=== PATIENT | male | born 1950 | race Caucasian/White ===

== ENCOUNTER 2021-02-19 | Emergency (ER) | payer SELFPAY | END 2021-02-19 23:02 | disposition home or self-care (01) ==

== ENCOUNTER 2022-12-19 10:46 | Inpatient (IN) | payer MEDICARE ==
[2022-12-19 11:52] LABS: Bacteria/HPF 1+ HPF (None Seen); Bilirubin Negative (Negative); Blood, Urine Negative (Negative); CAUTI Indications for Culture Dysuria,urgency,freq; Clarity Clear (Clear); Glucose, Urine (Dipstick) Normal (Negative); Ketone, Urine Negative (Negative); Leukocyte 75 Leu/uL (Negative); Nitrite Negative (Negative); Protein, Urine (Dipstick) 50 mg/dL (Neg-Trace); RBC/HPF 0-3 HPF (0-3); Specific Gravity, Urine 1.015 (1.002-1.036); Squamous Epithelial 0-3 HPF (0-3); Urobilinogen Normal mg/dL (Less than 2)
[2022-12-19 11:53] LABS: Urine Culture Reflex No No
[2022-12-19 12:36] LABS: ALT (SGPT) Less than 7 U/L (8-55); AST (SGOT) 14 U/L (5-34); Albumin 2.8 g/dL (3.4-4.8); Alkaline Phosphatase 148 U/L (40-110); Anion Gap 17 mmol/L (10-20); BUN (Urea Nitrogen) 69 mg/dL (8.4-25.7); Bilirubin, Total 1.1 mg/dL (0.2-1.2); Calc. Creatinine Clearance 0 mL/min (70-130); Calcium 7.7 mg/dL (7.8-10.44); Carbon Dioxide 22 mmol/L (23-31); Chloride 104 mmol/L (98-107); Estimated GFR 33; Globulin 1.7 g/dL (2.4-3.5); Glucose 60 mg/dL (83-110); Potassium 5.7 mmol/L (3.5-5.1); Protein, Total 4.5 g/dL (5.8-8.1); Sodium 137 mmol/L (136-145)
[2022-12-19 12:53] LABS: Hemoglobin 3.9 g/dL (14.0-18.0); Manual Diff?? YES; Mean Corpuscular Hemoglobin 25.8 pg (27.0-31.0); Mean Corpuscular Volume 121.9 fl (78.0-98.0); Mean Platelet Volume 11.4 fL (7.4-10.4); RBC Distribution Width 29.8 % (11.5-14.5); Red Blood Cell (RBC) Count 1.51 mill/uL (4.70-6.10); White Blood Cell (WBC) Count 314.7 10x3/uL (4.8-10.8)
[2022-12-19 12:54] LABS: Mean Corpuscular HGB CONC 21.2 g/dL (32.0-36.0); Platelet Count 22 10x3/uL (130-400)
[2022-12-19 12:56] LABS: Delete Auto Diff?? YES
[2022-12-19 13:19] LABS: Anisocytosis MODERATE=16-30 cells HPF (0-5); Band 1 % (5-11); CellaVision Operator ID LAB.KB; Eosinophils 2 % (0-10); Hypochromia SLIGHT = 6-15 cells HPF (0-5); Lymphocytes 86 % (21-51); Macrocytosis MODERATE=16-30 cells HPF (0-5); Metamyelocyte 1 % (0-0); Monocytes 1 % (0-10); Neutrophil 9 % (42-75); Nucleated RBC (Manual Ct) 4 % (0); Ovalocytes SLIGHT = 2-5 cells HPF (0-1); Platelet Adequacy Comment Significant decrease; Polychromasia SLIGHT = 2-3 cells HPF (0-2); Smudge Cells 129.1 %; Total Cell Count 103
[2022-12-19] MEDS ORDERED: Cefepime 2 GM VIAL ONE (13:29)
[2022-12-19] MEDS ORDERED: Vancomycin 1.5 GRAM/300 ML BAG 1.5 GM in Premix Bag 1 BAG IVPB SCH (13:45)
[2022-12-19 16:07] LABS: Troponin I 0.918 ng/mL (< 0.028)
[2022-12-19 18:16] LABS: Critical Call Chem Troponin I RESULT DECREASING; Troponin I 0.844 ng/mL (< 0.028)
[2022-12-19] MEDS ORDERED: Senokot S 8.6-50 MG TAB PO PRN (18:27)
[2022-12-19] MEDS ORDERED: Dextrose 5 % And 0.9 % NaCl 1,000 ML IV SCH ×2 (18:30→18:45)
[2022-12-19] MEDS ORDERED: LOKELMA 10 GM PACKET PO SCH (18:30)
[2022-12-19] MEDS ORDERED: Acetaminophen 325 MG TAB PO PRN (18:30)
[2022-12-19] MEDS ORDERED: Dextrose 5% in Water 1,000 ML IV PRN (18:31)
[2022-12-19] MEDS ORDERED: Glucagon 1 MG/ML KIT IM PRN (18:31)
[2022-12-19] MEDS ORDERED: Dextrose 50% Abboject 50 ML SYRINGE SLOW IVP PRN (18:31)
[2022-12-19 18:42] VITALS: BMI 20.7
[2022-12-19] MEDS: ALPRAZolam 0.5 MG TAB PO SCH (20:55)
[2022-12-20] MEDS: Albumin 25% 25 GM/100 ML BOT IVPB SCH ×2 (00:13→05:14)
[2022-12-20 02:12] LABS: Hemoglobin 6.4 g/dL (14.0-18.0); Manual Diff?? YES; Mean Corpuscular HGB CONC 26.4 g/dL (32.0-36.0); Mean Corpuscular Hemoglobin 28.3 pg (27.0-31.0); RBC Distribution Width 27.5 % (11.5-14.5); Red Blood Cell (RBC) Count 2.26 mill/uL (4.70-6.10)
[2022-12-20 02:38] LABS: Delete Auto Diff?? YES
[2022-12-20 02:40] LABS: White Blood Cell (WBC) Count 266.3 10x3/uL (4.8-10.8)
[2022-12-20 02:42] LABS: Anion Gap 17 mmol/L (10-20); BUN (Urea Nitrogen) 75 mg/dL (8.4-25.7); Calc. Creatinine Clearance 34 mL/min (70-130); Calcium 7.7 mg/dL (7.8-10.44); Carbon Dioxide 19 mmol/L (23-31); Chloride 106 mmol/L (98-107); Estimated GFR 36; Glucose 86 mg/dL (83-110); Sodium 135 mmol/L (136-145)
[2022-12-20 02:46] LABS: Potassium 6.6 mmol/L (3.5-5.1)
[2022-12-20 03:45] LABS: Anisocytosis MODERATE=16-30 cells HPF (0-5); Band 1 % (5-11); Burr Cells SLIGHT = 2-5 cells HPF (0-1); CellaVision Operator ID LAB.JMM; Lymphocytes 91 % (21-51); Macrocytosis SLIGHT = 6-15 cells HPF (0-5); Metamyelocyte 1 % (0-0); Neutrophil 7 % (42-75); Platelet Adequacy Comment Platelets Decreased; Poikilocytosis SLIGHT = 6-15 cells HPF (0-5); Polychromasia SLIGHT = 2-3 cells HPF (0-2); RBC Morphology 2; Smudge Cells 123.5 %; Total Cell Count 98
[2022-12-20] MEDS ORDERED: Calcium Gluc 4.6 MEQ/10 ML (100 MG/ML) SLOW IVP SCH (03:45)
[2022-12-20 03:48] LABS: Platelet Count 18 10x3/uL (130-400)
[2022-12-20 03:49] LABS: Mean Corpuscular Volume 107.1 fl (78.0-98.0)
[2022-12-20] MEDS ORDERED: LOKELMA 10 GM PACKET PO SCH (04:00)
[2022-12-20 04:29] VITALS: BP 107/56; TEMP 98.5
[2022-12-20 05:43] LABS: Anion Gap 14 mmol/L (10-20); BUN (Urea Nitrogen) 73 mg/dL (8.4-25.7); Calc. Creatinine Clearance 34 mL/min (70-130); Calcium 7.9 mg/dL (7.8-10.44); Carbon Dioxide 22 mmol/L (23-31); Chloride 105 mmol/L (98-107); Estimated GFR 36; Glucose 101 mg/dL (83-110); Potassium 5.8 mmol/L (3.5-5.1); Sodium 135 mmol/L (136-145)
[2022-12-20] MEDS ORDERED: Levothyroxine Sodium 88 MCG TAB PO SCH (06:00)
[2022-12-20] MEDS ORDERED: Dextrose 5 % And 0.9 % NaCl 1,000 ML IV SCH ×2 (07:10→08:45)
[2022-12-20] MEDS ORDERED: Furosemide 20 MG/2 ML VIAL SLOW IVP SCH (07:15)
[2022-12-20] MEDS: ALPRAZolam 0.5 MG TAB PO SCH ×2 (08:34→20:36)
[2022-12-20] MEDS ORDERED: Promethazine HCl 12.5 MG in Sodium Chloride 0.9% 50 ML IVPB PRN (08:44)
[2022-12-20] MEDS ORDERED: Morphine 2 MG/ML VIAL SLOW IVP PRN (08:44)
[2022-12-20] MEDS ORDERED: Lorazepam 2 MG/ML VIAL SLOW IVP PRN (08:45)
[2022-12-20] MEDS ORDERED: Ipratropium/Albuterol 3 ML NEB NEB PRN (08:55)
[2022-12-20] MEDS: Morphine 2 MG/ML VIAL SLOW IVP PRN ×3 (12:22→19:57)
[2022-12-20] MEDS ORDERED: Cefepime 2 GM in Sodium Chloride 0.9% 100 ML IVPB SCH (13:00)
[2022-12-20] MEDS ORDERED: Scopolamine 1.5 mg/72 hour Patch TD SCH (23:00)
[2022-12-20] MEDS: HYDROcodone/Acetaminophen 10/325 mg Tablet PO PRN (23:22)
[2022-12-20] MEDS: Promethazine 25 MG TAB PO PRN (23:23)
[2022-12-21] MEDS: HYDROcodone/Acetaminophen 10/325 mg Tablet PO PRN ×2 (12:09→18:51)
[2022-12-21] MEDS: Promethazine 25 MG TAB PO PRN ×2 (12:11→18:51)
[2022-12-21] MEDS: ALPRAZolam 0.5 MG TAB PO SCH ×2 (12:11→21:01)
[2022-12-22] MEDS: HYDROcodone/Acetaminophen 10/325 mg Tablet PO PRN ×3 (01:25→17:52)
[2022-12-22] MEDS: Promethazine 25 MG TAB PO PRN ×3 (01:31→17:52)
[2022-12-22] MEDS: ALPRAZolam 0.5 MG TAB PO SCH ×2 (08:36→20:30)
[2022-12-23] MEDS: HYDROcodone/Acetaminophen 10/325 mg Tablet PO PRN ×3 (00:25→09:43)
[2022-12-23] MEDS: Promethazine 25 MG TAB PO PRN ×2 (00:27→09:44)
[2022-12-23] MEDS: ALPRAZolam 0.5 MG TAB PO SCH (09:45)
[2022-12-23] MEDS: Morphine 2 MG/ML VIAL SLOW IVP PRN ×2 (14:05→16:09)
[2022-12-23] MEDS ORDERED: Scopolamine 1.5 mg/72 hour Patch TD SCH (23:00)
== END 2022-12-23 16:17 | disposition home or self-care (01) | DRG 840 ==
LOC: ERS 10:46 → 2NO 18:38 → EEVIPCON 18:38
PROVIDERS: ADMIT Family Medicine; ATTEND Internal Medicine
PROC: 30233N1 Transfusion of Nonautologous Red Blood Cells into Peripheral Vein, Percutaneous Approach (ICD-10-PCS; principal; 2022-12-19)
PROC: 30233J1 Transfusion of Nonautologous Serum Albumin into Peripheral Vein, Percutaneous Approach (ICD-10-PCS; 2022-12-20)
DX: C91.10 Chronic lymphocytic leukemia of B-cell type not having achieved remission (principal); E43 Unspecified severe protein-calorie malnutrition; I21.A1 Myocardial infarction type 2; R64 Cachexia; N17.9 Acute kidney failure, unspecified; J91.0 Malignant pleural effusion; Z66 Do not resuscitate; Z51.5 Encounter for palliative care; E87.5 Hyperkalemia; G89.29 Other chronic pain; E16.2 Hypoglycemia, unspecified; I25.10 Atherosclerotic heart disease of native coronary artery without angina pectoris; D63.0 Anemia in neoplastic disease; D69.6 Thrombocytopenia, unspecified; N18.9 Chronic kidney disease, unspecified; E03.9 Hypothyroidism, unspecified; Z68.20 Body mass index [BMI] 20.0-20.9, adult; Z85.828 Personal history of other malignant neoplasm of skin; Z98.890 Other specified postprocedural states; Z95.5 Presence of coronary angioplasty implant and graft; Z91.040 Latex allergy status; Z88.0 Allergy status to penicillin; Z91.09 Other allergy status, other than to drugs and biological substances
CPT/HCPCS: 36415; 36416; 36430; 71045; 80048; 80053; 81001; 82553; 83605; 83615; 83880; 84484; 85025; 86850; 86900; 86901; 87040; 93005; 93010; 96365; J0612; J0692; J1940; J2272; J3370; J7042; J7611; P9016; P9047; Q0169

== ENCOUNTER 2022-12-23 16:21 | Inpatient (IN) | payer OTHER ==
[2022-12-23] MEDS ORDERED: Promethazine HCl 25 MG in Sodium Chloride 0.9% 50 ML IVPB PRN (17:36)
[2022-12-23] MEDS ORDERED: Haloperidol Lactate 5 MG/ML VIAL SLOW IVP PRN (17:45)
[2022-12-23] MEDS ORDERED: Hyoscyamine SL 0.125 MG TAB SL PRN (17:45)
[2022-12-23] MEDS ORDERED: Acetaminophen 650 MG Suppository PR PRN (17:45)
[2022-12-23] MEDS ORDERED: Scopolamine 1.5 mg/72 hour Patch TOP PRN (17:45)
[2022-12-23] MEDS ORDERED: Bisacodyl 10 MG SUPP PR PRN (18:06)
[2022-12-23] MEDS ORDERED: Morphine 4 MG/ML VIAL SLOW IVP PRN (18:07)
[2022-12-23] MEDS ORDERED: Lorazepam 2 MG/ML VIAL SLOW IVP PRN (18:07)
[2022-12-23] MEDS ORDERED: Morphine 4 MG/ML VIAL SLOW IVP SCH (20:00)
[2022-12-23] MEDS ORDERED: Lorazepam 2 MG/ML VIAL SLOW IVP SCH (21:00)
== END 2022-12-23 20:30 | disposition expired | DRG 951 ==
LOC: EEVIPCON 16:21 → 2NO 16:21
PROVIDERS: ADMIT Internal Medicine Nephrology; ATTEND Internal Medicine Nephrology
DX: Z51.5 Encounter for palliative care (principal); I21.A1 Myocardial infarction type 2; E43 Unspecified severe protein-calorie malnutrition; N17.9 Acute kidney failure, unspecified; C91.10 Chronic lymphocytic leukemia of B-cell type not having achieved remission; E87.1 Hypo-osmolality and hyponatremia; J90 Pleural effusion, not elsewhere classified; E87.5 Hyperkalemia; D64.9 Anemia, unspecified; D69.6 Thrombocytopenia, unspecified
CPT/HCPCS: J2270